=== PATIENT | female | born 1995 ===

== ENCOUNTER 2017-06-06 10:03 | Emergency (ER) | payer OTHER ==
[~2017-06-06] VITALS: Ht 167.6 cm; Wt 57.6 kg
== END 2017-06-06 14:32 | disposition home or self-care (01) ==
LOC: ER 10:03
DX: L02.512 Cutaneous abscess of left hand (principal); T36.8X5A Adverse effect of other systemic antibiotics, initial encounter; Y92.89 Other specified places as the place of occurrence of the external cause